=== PATIENT | female | born 1985 | race African-American/Black ===

== ENCOUNTER 2017-01-19 16:21 | Emergency (ER) | payer MEDICAID ==
[2017-01-19 16:44] LABS: BASOPHILS 0.1 % (0-2); EOSINOPHILS 1.5 % (0-7); HEMATOCRIT 39.4 % (36.0-48.0); HEMOGLOBIN 12.8 g/dL (12-16); IMMATURE GRANULOCYTES 0.1 % (0-5); LYMPHOCYTES 32.8 % (15-50); MCH 27.1 pg (26.0-34.0); MCHC 32.5 g/dL (31.0-37.0); MCV 83.5 fL (80.0-100.0); MEAN PLATELET VOLUME 9.4 fL (7.4-10.4); MONOCYTES 6.8 % (2-11); NEUTROPHILS 58.7 % (40-80); PLATELET COUNT 251 10x3/uL (130-400); RBC 4.72 10x6/uL (4.00-5.40); RDW 13.4 % (11.5-14.5); WBC 6.8 10x3/uL (4.8-10.8)
[2017-01-19 17:37] LABS: ALBUMIN 3.3 g/dL (3.4-5.0); ALKALINE PHOSPHATASE 71 U/L (46-116); ALT (SGPT) 25 U/L (10-68); BILIRUBIN - TOTAL 0.12 mg/dL (0.2-1.3); CALCIUM 9.2 mg/dL (8.5-10.1); CARBON DIOXIDE 30.4 mmol/L (21.0-32.0); CHLORIDE - SERUM 101 mmol/L (98-107); CREATININE - SERUM 0.8 mg/dL (0.6-1.3); POTASSIUM - SERUM 4.2 mmol/L (3.5-5.1); PROTEIN - SERUM 6.4 g/dL (6.4-8.2); SODIUM 135 mmol/L (136-145); UREA NITROGEN 10 mg/dL (7-18); eGFR NON AFRICAN AMERICAN 89 mL/min (90-120)
[2017-01-19 17:43] LABS: CALC OSMOLALITY 285 mosm/kg (275-300); TROPONIN-I < 0.017 ng/mL (0.000-0.060)
[2017-01-19 17:44] LABS: GLUCOSE 412 mg/dL (74-106)
== END 2017-01-19 18:40 | disposition home or self-care (01) ==
LOC: D.ER 16:21
PROVIDERS: Emergency Medicine; Nurse Practitioner Family
DX: S29.012A Strain of muscle and tendon of back wall of thorax, initial encounter (principal); V49.9XXA Car occupant (driver) (passenger) injured in unspecified traffic accident, initial encounter; Y93.89 Activity, other specified; Y92.410 Unspecified street and highway as the place of occurrence of the external cause; M62.838 Other muscle spasm; E11.8 Type 2 diabetes mellitus with unspecified complications; I44.0 Atrioventricular block, first degree

== ENCOUNTER 2017-01-22 16:32 | Emergency (ER) | payer MEDICAID ==
[2017-01-22 18:45] LABS: ALBUMIN 3.1 g/dL (3.4-5.0); ALKALINE PHOSPHATASE 65 U/L (46-116); ALT (SGPT) 27 U/L (10-68); BILIRUBIN - TOTAL 0.16 mg/dL (0.2-1.3); CALC OSMOLALITY 288 mosm/kg (275-300); CALCIUM 8.7 mg/dL (8.5-10.1); CHLORIDE - SERUM 104 mmol/L (98-107); CREATININE - SERUM 0.8 mg/dL (0.6-1.3); POTASSIUM - SERUM 3.9 mmol/L (3.5-5.1); PROTEIN - SERUM 6.6 g/dL (6.4-8.2); SODIUM 139 mmol/L (136-145); UREA NITROGEN 12 mg/dL (7-18); eGFR NON AFRICAN AMERICAN 89 mL/min (90-120)
[2017-01-22 18:46] LABS: GLUCOSE 298 mg/dL (74-106)
== END 2017-01-22 19:32 | disposition home or self-care (01) ==
LOC: D.ER 16:32
PROVIDERS: Emergency Medicine
DX: R07.89 Other chest pain (principal); J01.10 Acute frontal sinusitis, unspecified; E11.9 Type 2 diabetes mellitus without complications

== ENCOUNTER 2017-05-04 19:54 | Emergency (ER) | payer MEDICAID | END 2017-05-04 23:00 | disposition home or self-care (01) | LOC: D.ER 19:54 | DX: R51 Headache (principal); E11.65 Type 2 diabetes mellitus with hyperglycemia ==

== ENCOUNTER 2017-06-30 23:10 | Emergency (ER) | payer MEDICAID | END 2017-06-30 23:39 | disposition home or self-care (01) | LOC: D.ER 23:10 | DX: J03.90 Acute tonsillitis, unspecified (principal); E11.9 Type 2 diabetes mellitus without complications ==

== ENCOUNTER 2018-03-04 18:18 | Emergency (ER) | payer MEDICAID ==
[~2018-03-04] VITALS: Ht 165.1 cm; Wt 92.7 kg
[2018-03-04 18:38] VITALS: Ht 165.1 cm; Wt 92.7 kg
[2018-03-04] MEDS ORDERED: VOLTAREN75 MG PO (19:48)
[2018-03-04] MEDS ORDERED: ROBAXIN-750750 MG PO (19:48)
[2018-03-04 20:02] VITALS: BP 15/78
== END 2018-03-04 20:03 | disposition home or self-care (01) ==
LOC: D.ER 18:18
DX: M75.22 Bicipital tendinitis, left shoulder (principal)

== ENCOUNTER 2018-03-09 21:43 | Emergency (ER) | payer MEDICAID ==
[~2018-03-09] VITALS: Ht 165.1 cm; Wt 92.1 kg
[~2018-03-09 21:43] MED LIST: ROBAXIN-750750 MG PO; VOLTAREN75 MG PO
[2018-03-09 22:51] VITALS: Ht 165.1 cm; Wt 92.1 kg
[2018-03-09] MEDS ORDERED: GLUCOPHAGE500 MG PO (22:56)
[2018-03-09 23:40] LABS: BASOPHILS 0.2 % (0-2); EOSINOPHILS 1.5 % (0-7); HEMOGLOBIN 12.9 g/dL (12-16); IMMATURE GRANULOCYTES 0.2 % (0-5); LYMPHOCYTES 45.8 % (15-50); MCH 27.6 pg (26.0-34.0); MCHC 33.9 g/dL (31.0-37.0); MCV 81.2 fL (80.0-100.0); MEAN PLATELET VOLUME 9.6 fL (7.4-10.4); MONOCYTES 5.4 % (2-11); NEUTROPHILS 46.9 % (40-80); PLATELET COUNT 258 10x3/uL (130-400); RBC 4.68 10x6/uL (4.00-5.40); RDW 13.6 % (11.5-14.5); WBC 6.1 10x3/uL (4.8-10.8)
[2018-03-09 23:45] LABS: APTT 22.6 SECONDS (22.8-39.4); INR 0.92 (0.85-1.17)
[2018-03-09 23:47] LABS: D-DIMER-QUANTITATIVE 0.32 ug/mLFEU (0.20-0.54)
[2018-03-10 00:52] LABS: ALKALINE PHOSPHATASE 67 U/L (46-116); ALT (SGPT) 21 U/L (10-68); BILIRUBIN - TOTAL 0.16 mg/dL (0.2-1.3); CALC OSMOLALITY 281 mosm/kg (275-300); CALCIUM 8.5 mg/dL (8.5-10.1); CARBON DIOXIDE 30.2 mmol/L (21.0-32.0); CHLORIDE - SERUM 103 mmol/L (98-107); CREATININE - SERUM 0.6 mg/dL (0.6-1.3); GLUCOSE 285 mg/dL (74-106); POTASSIUM - SERUM 3.8 mmol/L (3.5-5.1); PROTEIN - SERUM 5.9 g/dL (6.4-8.2); SODIUM 137 mmol/L (136-145); UREA NITROGEN 7 mg/dL (7-18); eGFR NON AFRICAN AMERICAN > 90 mL/min (90-120)
[2018-03-10 01:07] LABS: CKMB 0.5 U/L (0.0-3.6); CREATINE KINASE 81 UL (21-215); PRO BNP 14 pg/mL (0-125)
[2018-03-10 01:15] LABS: TROPONIN-I < 0.017 ng/mL (0.000-0.060)
[2018-03-10] MEDS ORDERED: IBUPROFEN800 MG PO (03:20)
[2018-03-10] MEDS ORDERED: CYCLOBENZAPRINE10 MG PO (03:20)
[2018-03-10] MEDS ORDERED: ACETAMINOPHEN500 M1 PO (03:20)
[2018-03-10 03:55] VITALS: BP 116/86
== END 2018-03-10 03:59 | disposition home or self-care (01) ==
LOC: D.ER 21:43
PROVIDERS: Family Medicine
DX: M94.0 Chondrocostal junction syndrome [Tietze] (principal); M79.1 Myalgia

== ENCOUNTER 2018-08-23 19:42 | Emergency (ER) | payer MEDICAID ==
[~2018-08-23] VITALS: Ht 165.1 cm; Wt 93.2 kg
[~2018-08-23 19:42] MED LIST changes: +ACETAMINOPHEN500 M1 PO; +CYCLOBENZAPRINE10 MG PO; +GLUCOPHAGE500 MG PO; +IBUPROFEN800 MG PO
[2018-08-23 19:57] VITALS: Ht 165.1 cm; Wt 93.2 kg
[2018-08-23 20:16] LABS: BASOPHILS 0.5 % (0-2); EOSINOPHILS 1.4 % (0-7); HEMATOCRIT 39.7 % (36.0-48.0); HEMOGLOBIN 13.5 g/dL (12-16); IMMATURE GRANULOCYTES 0.3 % (0-5); LYMPHOCYTES 40.8 % (15-50); MCH 27.8 pg (26.0-34.0); MCV 81.9 fL (80.0-100.0); MEAN PLATELET VOLUME 9.3 fL (7.4-10.4); MONOCYTES 6.9 % (2-11); NEUTROPHILS 50.1 % (40-80); PLATELET COUNT 298 10x3/uL (130-400); RBC 4.85 10x6/uL (4.00-5.40); RDW 13.1 % (11.5-14.5); WBC 6.5 10x3/uL (4.8-10.8)
[2018-08-23 20:28] LABS: APTT 22.7 SECONDS (22.8-39.4); INR 0.93 (0.85-1.17)
[2018-08-23 20:33] LABS: ALBUMIN 3.2 g/dL (3.4-5.0); ALKALINE PHOSPHATASE 69 U/L (46-116); ALT (SGPT) 15 U/L (10-68); BILIRUBIN - TOTAL 0.24 mg/dL (0.2-1.3); CALC OSMOLALITY 279 mosm/kg (275-300); CALCIUM 8.8 mg/dL (8.5-10.1); CARBON DIOXIDE 25.6 mmol/L (21.0-32.0); CHLORIDE - SERUM 103 mmol/L (98-107); CREATININE - SERUM 0.6 mg/dL (0.6-1.3); GLUCOSE 267 mg/dL (74-106); POTASSIUM - SERUM 3.6 mmol/L (3.5-5.1); PROTEIN - SERUM 6.9 g/dL (6.4-8.2); SODIUM 136 mmol/L (136-145); UREA NITROGEN 11 mg/dL (7-18); eGFR NON AFRICAN AMERICAN > 90 mL/min (90-120)
[2018-08-23 20:34] LABS: AMYLASE - SERUM 45 U/L (25-115); LIPASE 175 U/L (73-393)
[2018-08-23 20:44] LABS: CKMB 0.5 U/L (0.0-3.6); CREATINE KINASE 69 UL (21-215); MAGNESIUM - SERUM 1.7 mg/dL (1.8-2.4)
[2018-08-23 20:45] LABS: TROPONIN-I < 0.017 ng/mL (0.000-0.060)
[2018-08-23 20:45] LABS: KETONE - SERUM NEGATIVE (NEGATIVE)
[2018-08-23] MEDS ORDERED: GLUCOPHAGE1000 MG PO (23:47)
[2018-08-23 23:55] VITALS: BP 97/64
== END 2018-08-23 23:56 | disposition home or self-care (01) ==
LOC: D.ER 19:42
PROVIDERS: Family Medicine
DX: R07.89 Other chest pain (principal); E11.65 Type 2 diabetes mellitus with hyperglycemia; Z76.0 Encounter for issue of repeat prescription; Z91.19 Patient's noncompliance with other medical treatment and regimen

== ENCOUNTER 2019-04-19 00:16 | Observation (INO) | payer MEDICAID ==
[2019-04-19] VITALS (7 sets, daily range): BP systolic 94–127; BP diastolic 49–78; Ht 165.1 cm; Wt 91.4 kg
[~2019-04-19] VITALS: Ht 165.1 cm; Wt 91.4 kg
[~2019-04-19 00:16] MED LIST changes: +GLUCOPHAGE1000 MG PO
[2019-04-19 00:54] LABS: ALBUMIN 2.9 g/dL (3.4-5.0); ALKALINE PHOSPHATASE 63 U/L (46-116); ALT (SGPT) 14 U/L (10-68); BILIRUBIN - TOTAL 0.14 mg/dL (0.2-1.3); CALC OSMOLALITY 287 mosm/kg (275-300); CALCIUM 8.1 mg/dL (8.5-10.1); CARBON DIOXIDE 25.2 mmol/L (21.0-32.0); CHLORIDE - SERUM 102 mmol/L (98-107); CREATININE - SERUM 0.8 mg/dL (0.6-1.3); MAGNESIUM - SERUM 1.5 mg/dL (1.8-2.4); POTASSIUM - SERUM 3.3 mmol/L (3.5-5.1); PROTEIN - SERUM 6.4 g/dL (6.4-8.2); SODIUM 138 mmol/L (136-145); UREA NITROGEN 9 mg/dL (7-18); eGFR NON AFRICAN AMERICAN 87 mL/min (90-120)
[2019-04-19 00:58] LABS: HEMATOCRIT 35.3 % (36.0-48.0); LYMPHOCYTES 39.9 % (15-50); MCH 27.8 pg (26.0-34.0); MCV 81.9 fL (80.0-100.0); MEAN PLATELET VOLUME 9.5 fL (7.4-10.4); NEUTROPHILS 52.7 % (40-80); PLATELET COUNT 274 10x3/uL (130-400); RBC 4.31 10x6/uL (4.00-5.40); RDW 13.2 % (11.5-14.5); WBC 5.9 10x3/uL (4.8-10.8)
[2019-04-19 00:59] LABS: KETONE - SERUM NEGATIVE (NEGATIVE)
[2019-04-19 01:01] LABS: GLUCOSE 331 mg/dL (74-106)
--- NOTE | 2019-04-19 01:34 | NUR ---
PT IN ROOM LAUGHING AND JOKING WITH SEVERAL FAMILY MEMBERS. NO DISTRESS NOTED.
[2019-04-19 01:55] LABS: APPEARANCE HAZY (CLEAR); BILIRUBIN NEGATIVE (NEGATIVE); COLOR YELLOW (YELLOW); GLUCOSE 1000 mg/dL (NEGATIVE); KETONE NEGATIVE (NEGATIVE); NITRITE NEGATIVE (NEGATIVE); PROTEIN NEGATIVE (NEGATIVE); SPECIFIC GRAVITY 1.015 (1.005-1.020)
[2019-04-19 01:56] LABS: EPITHELIAL CELLS 0-5 /hpf (0-5); WHITE CELLS - URINE 0-5 /hpf (0-5)
[2019-04-19 01:57] LABS: BACTERIA MANY /hpf (NONE SEEN); MUCUS >1+ /lpf (NONE SEEN); RED CELLS - URINE 0-5 /hpf (0-5); YEAST >1+ WITH HYPHAE /hpf (NONE SEEN)
--- NOTE | 2019-04-19 02:22 | NUR ---
BLOOD SUGAR 351
--- NOTE | 2019-04-19 02:58 | NUR ---
RECEIVED PATIENT VIA WC, WITH ER NURSE AND FAMILY. PATIENT IS A&OX4, 18G IV TO LT AC WITH LR BOLUS HANGING BY GRAVITY. WILL CPOC. NO S/SX OF DISTRESS NOTED, RR EVEN AND UNLABORED. PATIENT STATES LAST BM WAS OVER A WEEK AGO, BOWEL SOUNDS HYPOACTIVE X4. PATIENT IS ON ROOM AIR. MED REC, HISTORY COMPLETE, REQUESTED TELEMETRY FROM RADIATION ENGINEER. PATIENT DENIES NEEDS AT THIS TIME. CL IN REACH, BED LOCKED AND LOWERED. WILL CTM.
[2019-04-19 06:51] LABS: CKMB 0.6 U/L (0.0-3.6); CREATINE KINASE 71 UL (21-215); TROPONIN-I < 0.017 ng/mL (0.000-0.060)
--- NOTE | 2019-04-19 07:05 | NUR ---
REPORT RECEIVED. ALERT ABLE TO VOICE NEEDS STATES SHE HAS CHEST PAIN THAT TINGLES IN RIGHT UPPER CHEST THAT DOES NOT RADIATE AND SHE HAS HAD IT SINCE ADMIT BUT IT HAS NOT CHANGED IN HOW IT FEELS, AND DENIES PRESSURE. RESP EVEN WITHOUT LABOR. LEFT A/C SALINE LOCK IS INTACT. CL IN REACH. FAMILY AT BEDSIDE
--- NOTE | 2019-04-19 07:15 | NUR ---
DR HENDRIX IS HERE AT THIS TIME AND AWARE OF HER CHEST PAIN AND DESCRIPTION OF IT, STATES OK HE WILL SEE HER. NO NEW ORDERS AT THIS TIME.
[2019-04-19 09:34] LABS: CHOL - HDL RATIO 3.6 ratio (2.3-4.1); LDL-HDL RATIO 1.9 ratio (1.5-3.5)
--- NOTE | 2019-04-19 10:15 | NUR ---
SHE HAS MULTIPLE FAMILY IN ROOM AND CHILDREN. NO CHANGE IN STATUS. SHE HAS BEEN ASLEEP ON AND OFF. SALINE LOCK IS CLEAR. BED IN LOW POSITION AND LOCKED. CAREPLAN REVIEW DONE AND SAFETY PRECAUTIONS IN PLACE
[2019-04-19 13:52] LABS: CKMB 0.6 U/L (0.0-3.6); CREATINE KINASE 70 UL (21-215)
[2019-04-19 13:54] LABS: TROPONIN-I < 0.017 ng/mL (0.000-0.060)
--- NOTE | 2019-04-19 17:46 | NUR ---
SHE FORGOT TO CALL WHEN SHE GOT URINE SPECIMEN. SHE WILL CALL NEXT TIME SHE GOES.
[2019-04-19 18:44] LABS: UDS - AMPHET NEGATIVE QUAL (NEGATIVE); UDS - BARB NEGATIVE QUAL (NEGATIVE); UDS - BENZO NEGATIVE QUAL (NEGATIVE); UDS - COCAINE NEGATIVE QUAL (NEGATIVE); UDS - OPIATE NEGATIVE QUAL (NEGATIVE); UDS - PCP NEGATIVE QUAL (NEGATIVE); UDS - THC NEGATIVE QUAL (NEGATIVE)
--- NOTE | 2019-04-19 19:15 | NUR ---
REPORT RECEIVED. ASSUMED CARE OF PATIENT. PT ALERT AND ORIENTED WHEN ENETERING THE ROOM. FAMILY AT BEDSIDE. PT DENIES PAIN AND DISCOMFORT AT THIS TIME. HAS LEFT AC THAT FLUSHES WELL AND IS RETURNED TO SALINE LOCKED. PATIENT ASKS WHAT SNACKS ARE AVAILABLE. PROVIDED WITH HS DIABETIC SNACK. PROVIDED DIABTIC DIET INFORMATION TO PATIENT. PT VERBALIZES UNDERSTANDING. DENIES FURTHER NEEDS. CALL LIGHT IN REACH OF PATIENT. CPOC.
[2019-04-19 20:56] LABS: CKMB 0.7 U/L (0.0-3.6); CREATINE KINASE 72 UL (21-215); TROPONIN-I < 0.017 ng/mL (0.000-0.060)
[2019-04-20] VITALS: BP 109/75
[2019-04-20 03:51] LABS: BASOPHILS 0.2 % (0-2); EOSINOPHILS 1.2 % (0-7); HEMOGLOBIN 11.3 g/dL (12-16); IMMATURE GRANULOCYTES 0.2 % (0-5); LYMPHOCYTES 45.5 % (15-50); MCH 27.6 pg (26.0-34.0); MCHC 34.2 g/dL (31.0-37.0); MCV 80.7 fL (80.0-100.0); MEAN PLATELET VOLUME 9.5 fL (7.4-10.4); MONOCYTES 7.8 % (2-11); NEUTROPHILS 45.1 % (40-80); PLATELET COUNT 264 10x3/uL (130-400); RBC 4.09 10x6/uL (4.00-5.40); RDW 13.1 % (11.5-14.5)
[2019-04-20 04:00] VITALS: BP 113/75
[2019-04-20 04:10] LABS: ALBUMIN 2.5 g/dL (3.4-5.0); ALKALINE PHOSPHATASE 59 U/L (46-116); ALT (SGPT) 14 U/L (10-68); BILIRUBIN - TOTAL 0.12 mg/dL (0.2-1.3); CALC OSMOLALITY 287 mosm/kg (275-300); CALCIUM 7.7 mg/dL (8.5-10.1); CARBON DIOXIDE 24.3 mmol/L (21.0-32.0); CHLORIDE - SERUM 104 mmol/L (98-107); CREATININE - SERUM 0.6 mg/dL (0.6-1.3); GLUCOSE 300 mg/dL (74-106); POTASSIUM - SERUM 3.7 mmol/L (3.5-5.1); PROTEIN - SERUM 5.7 g/dL (6.4-8.2); SODIUM 138 mmol/L (136-145); eGFR NON AFRICAN AMERICAN > 90 mL/min (90-120)
[2019-04-20 04:11] LABS: UREA NITROGEN 16 mg/dL (7-18)
--- NOTE | 2019-04-20 07:05 | NUR ---
REPORT RECEIVED. RESP EVEN WITHOUT LABOR. SHE IS RESTING WITH FAMILY ASLEEP AT BEDSIDE. CL IN REACH. BED IN LOWEST POSITION AND LOCKED. CAREPLAN REVIEWED AND SAFETY PRECAUTIONS IN PLACE
[2019-04-20 08:21] VITALS: BP 99/55
[2019-04-20 12:09] VITALS: BP 105/62
[2019-04-20] MEDS ORDERED: DIFLUCAN100 MG PO (13:02)
[2019-04-20] MEDS ORDERED: FLAGYL500 MG PO (13:02)
[2019-04-20] MEDS ORDERED: OMNICEF300 MG PO (13:04)
--- NOTE | 2019-04-20 16:10 | MORECARE ---
CASE MANAGEMENT DISCHARGE SUMMARY PATIENT: JAKOB WALKER UNIT: [id number] ADM DATE: 04/19/19 AGE: 33 : 85 SEX: F ROOM/BED: D.2110 AUTHOR: CATIA CHIU PHYSICIAN: REFERRING PHYSICIAN: GERALD YAP MD DATE OF SERVICE: 04/20/19 Discharge Plan Patient Name: JAKOB WALKER [facility] : 1985 Planned Disposition: Home Anticipated Discharge Date: 04/20/19 Discharge Date: Expected LOS: 1 Initial Reviewer: [email or web address] Initial Review Date: 04/20/2019 Generated: 04/20/19 5:10 pm DCPIA - Discharge Planning Initial Assessment Updated by [email or web address]: Ulisses Palm on 04/20/19 4:06 pm * Is the patient Alert and Oriented? Yes * How many steps to enter\exit or inside your home? * PCP NONE * Pharmacy [facility] [address] * Preadmission Environment Home with Family * ADLs Independent * Equipment None * Other Equipment NO MEDICAL EQUIPMENT PROVIDER PREFERENCE * List name and contact numbers for known caregivers / representatives who currently or will assist patient after discharge: ALBERTO CORDOVA, SISTER, * Verbal permission to speak to the caregivers and representatives has been obtained from the patient. N/A * Community resources currently utilized None * Please name any agencies selected above. NONE * Additional services required to return to the preadmission environment? No * Can the patient safely return to the preadmission environment? Yes * Has this patient been hospitalized within the prior 30 days at any hospital? No Patient Name: JAKOB WALKER Page 66986 at 1610 All edits/amendments must be made on the electronic document DICTATION DATE: 04/20/19 1610 MIXING AND DISPENSING SUPERVISOR: TOPHER 04/20/19 1610 RPT#: [id number] DC DATE: STATUS: ADM IN [facility] [address] [place] [address] END OF REPORT
--- NOTE | 2019-04-20 16:18 | MORECARE ---
CASE MANAGEMENT DISCHARGE SUMMARY PATIENT: JAKOB WALKER UNIT: [id number] ADM DATE: 04/19/19 AGE: 33 : 85 SEX: F ROOM/BED: D.2870 AUTHOR: APPLE,DOC PHYSICIAN: REFERRING PHYSICIAN: GERALD YAP MD DATE OF SERVICE: 04/20/19 Discharge Plan Patient Name: JAKOB WALKER Facility: [facility]:[place] : 1985 Planned Disposition: Home Anticipated Discharge Date: 04/20/19 Discharge Date: Expected LOS: 1 Initial Reviewer: [email or web address] Initial Review Date: 04/20/2019 Generated: 04/20/19 5:18 pm Comments DCP- Discharge Planning Updated by [email or web address]: Ulisses Palm on 04/20/19 3:[address] Patient Name: JAKOB WALKER Admission Status: ER Accout number: [id number] Admission Date: 04-19-2019 : 1985 Admission Diagnosis: Attending: GERALD YAP Current LOS: 1 Anticipated DC Date: 04-20-2019 Planned Disposition: Home Primary Insurance: MEDICAID [place] Discharge Planning Comments: CM MET WITH PT IN ROOM TO DISCUSS DISCHARGE PLANNING AND NEEDS. PT REPORTS LIVING AT HOME INDEPENDENTLY WITH HER MINOR CHILDREN. PT HAS NO MEDICAL EQUIPMENT AND NO OUTSIDE SERVICES ASSISTING IN THE HOME. CM DISCUSSED AVAILABILITY OF HOME HEALTH, REHAB SERVICES AND MEDICAL EQUIPMENT. PT DENIES DISCHARGE NEEDS, REPORTS HER FRIEND WILL PICK HER AND THE KIDS UP FOR DISCHARGE HOME. PT REPORTS NOT HAVING A PRIMARY CARE DOCTOR. CM PROVIDED COPIES OF PAGES FROM MEDICAID HANDBOOK THAT EXPLAIN HOW TO OBTAIN A PRIMARY DOCTOR. CM HIGHLIGHTED THE [facility] NUMBER TO CALL AND ALSO INSTRUCTED PT ON WHERE THE DEPARTMENT OF HUMAN SERICES OFFICE IS FOR STEEN FOR ASSISTANCE IN GETTING PRIMARY CARE ASSIGNMENT. CM PROVIDED INFORMATION TO [facility] AND TO DR. LOBO POSSIBLE PROVIDERS WITH OPENINGS FOR NEW PATIENTS. PT REPORTED UNDERSTANDING. Ssis Ssrs Developer: Ulisses Palm DCPIA - Discharge Planning Initial Assessment Updated by [email or web address]: Ulisses Palm on 04/20/19 4:06 pm * Is the patient Alert and Oriented? Yes * How many steps to enter\exit or inside your home? * PCP NONE * Pharmacy [facility] [address] * Preadmission Environment Home with Family * ADLs Independent * Equipment None * Other Equipment NO MEDICAL EQUIPMENT PROVIDER PREFERENCE * List name and contact numbers for known caregivers / representatives who currently or will assist patient after discharge: ALBERTO CORDOVA, SISTER, * Verbal permission to speak to the caregivers and representatives has been obtained from the patient. N/A * Community resources currently utilized None * Please name any agencies selected above. NONE * Additional services required to return to the preadmission environment? No * Can the patient safely return to the preadmission environment? Yes * Has this patient been hospitalized within the prior 30 days at any hospital? No Last DP export: 04/20/19 3:10 pm Patient Name: JAKOB WALKER Page 62892 at 1618 All edits/amendments must be made on the electronic document DICTATION DATE: 04/20/191617 SHANK FAKER: TOPHER 04/20/191617 RPT#: [id number] DC DATE: STATUS: ADM IN [facility] [address] [place] [address] END OF REPORT
--- NOTE | 2019-04-20 17:05 | NUR ---
DISCHARGE INSTRUCTIONS EXPLAINED IN DETAIL. SALINE LOCK REMOVED WITH CATH TIP INTACT, NO BLEEDING. ALERT WITH NO CHANGES IN CODITION NOTED. REFUSES W/C TRANSPORT. TELEMETRY RETURNED TO TOY DEPARTMENT MANAGER
[2019-04-21] MEDS ORDERED: GLUCOPHAGE1000 MG PO (03:04)
== END 2019-04-20 17:05 | disposition home or self-care (01) ==
LOC: D.ER 00:16 → D.M2 02:32 → OBSVTIME 02:32 → D.M2 02:32
PROVIDERS: Family Medicine; Internal Medicine Cardiovascular Disease; ADMIT Internal Medicine Nephrology; ATTEND Internal Medicine Nephrology
DX: I20.8 Other forms of angina pectoris (principal); N39.0 Urinary tract infection, site not specified; N76.0 Acute vaginitis; E87.6 Hypokalemia; E83.42 Hypomagnesemia; E11.9 Type 2 diabetes mellitus without complications; Z91.14 Patient's other noncompliance with medication regimen; B37.49 Other urogenital candidiasis

== ENCOUNTER 2019-04-21 01:35 | Emergency (ER) | payer MEDICAID ==
[~2019-04-21] VITALS: Ht 165.1 cm; Wt 88.6 kg
[~2019-04-21 01:35] MED LIST changes: +DIFLUCAN100 MG PO; +FLAGYL500 MG PO; +OMNICEF300 MG PO
[2019-04-21 01:46] VITALS: Ht 165.1 cm; Wt 88.6 kg
[2019-04-21 02:09] LABS: BASOPHILS 0.2 % (0-2); EOSINOPHILS 1.8 % (0-7); HEMATOCRIT 34.3 % (36.0-48.0); HEMOGLOBIN 11.7 g/dL (12-16); IMMATURE GRANULOCYTES 0.4 % (0-5); MCH 27.5 pg (26.0-34.0); MCHC 34.1 g/dL (31.0-37.0); MCV 80.5 fL (80.0-100.0); MEAN PLATELET VOLUME 9.5 fL (7.4-10.4); MONOCYTES 7.4 % (2-11); NEUTROPHILS 47.2 % (40-80); PLATELET COUNT 290 10x3/uL (130-400); RBC 4.26 10x6/uL (4.00-5.40); RDW 13.2 % (11.5-14.5); WBC 5.7 10x3/uL (4.8-10.8)
[2019-04-21 02:25] LABS: APTT 25.7 SECONDS (22.8-39.4); INR 0.99 (0.85-1.17); PROTIME 12.6 SECONDS (11.6-15.0)
[2019-04-21 02:29] LABS: ALKALINE PHOSPHATASE 67 U/L (46-116); ALT (SGPT) 14 U/L (10-68); BILIRUBIN - TOTAL 0.16 mg/dL (0.2-1.3); CALC OSMOLALITY 281 mosm/kg (275-300); CALCIUM 8.7 mg/dL (8.5-10.1); CARBON DIOXIDE 25.2 mmol/L (21.0-32.0); CHLORIDE - SERUM 102 mmol/L (98-107); CREATININE - SERUM 0.7 mg/dL (0.6-1.3); GLUCOSE 269 mg/dL (74-106); POTASSIUM - SERUM 3.8 mmol/L (3.5-5.1); PROTEIN - SERUM 6.7 g/dL (6.4-8.2); SODIUM 136 mmol/L (136-145); UREA NITROGEN 16 mg/dL (7-18); eGFR NON AFRICAN AMERICAN > 90 mL/min (90-120)
[2019-04-21 02:40] LABS: CKMB 0.9 U/L (0.0-3.6); CREATINE KINASE 79 UL (21-215); MAGNESIUM - SERUM 1.8 mg/dL (1.8-2.4); TROPONIN-I < 0.017 ng/mL (0.000-0.060)
[2019-04-21] MEDS ORDERED: GLUCOPHAGE1000 MG PO (03:04)
[2019-04-21 03:32] VITALS: BP 120/78
== END 2019-04-21 03:33 | disposition home or self-care (01) ==
LOC: D.ER 01:35
PROVIDERS: Family Medicine
DX: E11.65 Type 2 diabetes mellitus with hyperglycemia (principal); E07.89 Other specified disorders of thyroid

== ENCOUNTER 2019-06-02 21:59 | Emergency (ER) | payer MEDICAID ==
[~2019-06-02] VITALS: Ht 165.1 cm; Wt 88.0 kg
[2019-06-02 22:02] VITALS: Ht 165.1 cm; Wt 88.0 kg
[2019-06-02 22:19] LABS: HEMATOCRIT 42.1 % (36.0-48.0); HEMOGLOBIN 14.6 g/dL (12-16); MCH 27.7 pg (26.0-34.0); MCHC 34.7 g/dL (31.0-37.0); MCV 79.9 fL (80.0-100.0); MEAN PLATELET VOLUME 9.3 fL (7.4-10.4); PLATELET COUNT 254 10x3/uL (130-400); RBC 5.27 10x6/uL (4.00-5.40); RDW 13.3 % (11.5-14.5); WBC 7.5 10x3/uL (4.8-10.8)
[2019-06-02 22:32] LABS: ALBUMIN 3.2 g/dL (3.4-5.0); ALKALINE PHOSPHATASE 52 U/L (46-116); ALT (SGPT) 19 U/L (10-68); BILIRUBIN - TOTAL 0.26 mg/dL (0.2-1.3); CALC OSMOLALITY 281 mosm/kg (275-300); CALCIUM 8.1 mg/dL (8.5-10.1); CARBON DIOXIDE 26.4 mmol/L (21.0-32.0); CHLORIDE - SERUM 101 mmol/L (98-107); CREATININE - SERUM 0.7 mg/dL (0.6-1.3); GLUCOSE 276 mg/dL (74-106); POTASSIUM - SERUM 4.1 mmol/L (3.5-5.1); PROTEIN - SERUM 6.3 g/dL (6.4-8.2); SODIUM 137 mmol/L (136-145); UREA NITROGEN 8 mg/dL (7-18); eGFR NON AFRICAN AMERICAN > 90 mL/min (90-120)
[2019-06-02 22:39] LABS: EOSINOPHILS 1 % (0-7); LYMPHOCYTES 63 % (15-50); MONOCYTES 6 % (2-11); NEUTROPHILS 28 % (40-80)
[2019-06-02 22:40] LABS: AMYLASE - SERUM 48 U/L (25-115); CKMB 0.9 U/L (0.0-3.6); CREATINE KINASE 81 UL (21-215); LIPASE 175 U/L (73-393); PLATELET ESTIMATE NORMAL
[2019-06-02 22:42] LABS: TROPONIN-I < 0.017 ng/mL (0.000-0.060)
[2019-06-03 00:35] LABS: APPEARANCE HAZY (CLEAR); BACTERIA MANY /hpf (NONE SEEN); BILIRUBIN NEGATIVE (NEGATIVE); COLOR YELLOW (YELLOW); EPITHELIAL CELLS 0-5 /hpf (0-5); GLUCOSE 500 mg/dL (NEGATIVE); KETONE NEGATIVE (NEGATIVE); NITRITE NEGATIVE (NEGATIVE); PROTEIN NEGATIVE (NEGATIVE); RED CELLS - URINE NONE SEEN /hpf (0-5); SPECIFIC GRAVITY 1.025 (1.005-1.020); UROBILINOGEN NORMAL (NORMAL)
[2019-06-03] MEDS ORDERED: TYLENOL W/CODEI1 TAB PO (00:36)
[2019-06-03] MEDS ORDERED: NAPROSYN500 MG PO (00:36)
[2019-06-03 00:41] LABS: UDS - AMPHET NEGATIVE QUAL (NEGATIVE); UDS - BARB NEGATIVE QUAL (NEGATIVE); UDS - BENZO NEGATIVE QUAL (NEGATIVE); UDS - COCAINE NEGATIVE QUAL (NEGATIVE); UDS - OPIATE NEGATIVE QUAL (NEGATIVE); UDS - PCP NEGATIVE QUAL (NEGATIVE); UDS - THC NEGATIVE QUAL (NEGATIVE)
[2019-06-03 00:48] VITALS: BP 105/69
== END 2019-06-03 00:48 | disposition home or self-care (01) ==
LOC: D.ER 21:59
PROVIDERS: Family Medicine
DX: R07.9 Chest pain, unspecified (principal); M94.0 Chondrocostal junction syndrome [Tietze]; E11.9 Type 2 diabetes mellitus without complications

== ENCOUNTER 2019-12-10 00:53 | Emergency (ER) | payer MEDICAID ==
[~2019-12-10] VITALS: Ht 165.1 cm; Wt 87.7 kg
[~2019-12-10 00:53] MED LIST changes: +NAPROSYN500 MG PO; +TYLENOL W/CODEI1 TAB PO
[2019-12-10 00:58] VITALS: Ht 165.1 cm; Wt 87.7 kg
[2019-12-10 01:21] LABS: HCG URINE NEGATIVE (NEGATIVE)
[2019-12-10 01:22] LABS: BASOPHILS 0.2 % (0-2); EOSINOPHILS 1.5 % (0-7); HEMATOCRIT 39.1 % (36.0-48.0); LYMPHOCYTES 45.6 % (15-50); MCH 27.7 pg (26.0-34.0); MCHC 33.2 g/dL (31.0-37.0); MCV 83.4 fL (80.0-100.0); NEUTROPHILS 45.7 % (40-80); PLATELET COUNT 262 10x3/uL (130-400); RBC 4.69 10x6/uL (4.00-5.40); RDW 13.1 % (11.5-14.5); WBC 5.4 10x3/uL (4.8-10.8)
[2019-12-10 01:25] LABS: BACTERIA MANY /hpf (NEGATIVE); BILIRUBIN NEGATIVE (NEGATIVE); EPITHELIAL CELLS 0-5 /hpf (0-5); GLUCOSE 1000 mg/dL (NEGATIVE); KETONE NEGATIVE (NEGATIVE); NITRITE POSITIVE (NEGATIVE); RED CELLS - URINE NONE SEEN /hpf (0-5); SPECIFIC GRAVITY 1.015 (1.005-1.020); UROBILINOGEN NORMAL (NORMAL); WHITE CELLS - URINE 0-5 /hpf (NEGATIVE)
[2019-12-10 01:33] LABS: CALC OSMOLALITY 284 mosm/kg (275-300); CALCIUM 8.7 mg/dL (8.5-10.1); CHLORIDE - SERUM 100 mmol/L (98-107); CREATININE - SERUM 0.7 mg/dL (0.6-1.3); POTASSIUM - SERUM 3.8 mmol/L (3.5-5.1); SODIUM 135 mmol/L (136-145); UREA NITROGEN 11 mg/dL (7-18); eGFR NON AFRICAN AMERICAN > 90 mL/min (90-120)
[2019-12-10 01:38] LABS: GLUCOSE 379 mg/dL (74-106)
[2019-12-10] MEDS ORDERED: GLUCOTROL 5 MG T5 MG PO (01:44)
[2019-12-10] MEDS ORDERED: GLUCOPHAGE1000 MG PO (01:46)
[2019-12-10 01:47] LABS: ALBUMIN 3.2 g/dL (3.4-5.0); ALKALINE PHOSPHATASE 74 U/L (30-120); ALT (SGPT) 22 U/L (10-68); BILIRUBIN - TOTAL 0.16 mg/dL (0.2-1.3); CKMB 1.5 U/L (0.0-3.6); CREATINE KINASE 160 UL (21-215); PROTEIN - SERUM 6.8 g/dL (6.4-8.2)
[2019-12-10 01:48] LABS: TROPONIN-I < 0.017 ng/mL (0.000-0.060)
[2019-12-10 03:16] VITALS: BP 129/70
== END 2019-12-10 03:15 | disposition home or self-care (01) ==
LOC: D.ER 00:53
PROVIDERS: Emergency Medicine
DX: E11.65 Type 2 diabetes mellitus with hyperglycemia (principal); Z79.84 Long term (current) use of oral hypoglycemic drugs; Z91.14 Patient's other noncompliance with medication regimen; T38.3X6A Underdosing of insulin and oral hypoglycemic [antidiabetic] drugs, initial encounter

== ENCOUNTER 2020-06-22 16:35 | Inpatient (IN) | payer MEDICAID ==
[~2020-06-22] VITALS: Ht 165.1 cm; Wt 81.6 kg
--- NOTE | ~2020-06-22 | EC ---
PATIENT:JAKOB WALKER DATE OF SERVICE: 06/23/20 SEX: F MEDICAL RECORD: [id number] DATE OF : [birth year] LOCATION:D.M2 D.211 AGE OF PATIENT: 34 ADMISSION DATE: 06/23/20 REFERRING PHYSICIAN: INTERPRETING PHYSICIAN: DALTON OCASIO MD ECHOCARDIOGRAM REPORT ECHO CHARGES 4 ECHO COMPLETE Date: 06/23/20 CLINICAL DIAGNOSIS: CP ECHOCARDIOGRAPHIC MEASUREMENTS (adult normal given) AC root (d.<3.7cm) 3.1 cm LV Septum d (<1.2 cm> 0.8 cm Valve Excursion 2.1 cm LV Septum (systole) 0.9 cm Left Atria (s.<4.0cm> 2.9 cm LVPW d(<1.2cm) 0.8 cm RV (d.<2.3cm) 2.2 cm LVPW (sytole) 1.1 cm LV diastole(<5.6CM) 5.3 cm MV E-F(>70mm/sec) cm LV systole 4.0 cm LVOT Diameter 1.8 cm MV exc.(>10mm) 1.8 cm Est.ejection fraction (50-75%) % DOPPLER: LVIT cm/sec A 45 cm/sec E 56 cm/sec LA cm/sec RVSP 20 mmHg LVOT 84 cm/sec AOP1/2T m/s Asc. Ao 90 cm/sec RVOT 55 cm/sec RA cm/sec PA 77 cm/sec AV Gradient Peak 3.3 mmHg AV Mean 1.9 mmHg AV Area 2.5 cm MV Gradient Peak 1.4 mmHg MV Mean 0.9 mmHg MV Area cm COMMENTS: Claims Coordinator: Lukas ROSS Eyewear Consultant: 3 Dr. Bearden TAPE# PACS Pericardial Effusion N DATE OF SERVICE: Adequate 2D, color flow imaging, spectral Doppler, and M-Mode No LVH. LV internal dimension is normal. Wall motion is normal. EF is greater than or equal to 55%. Aortic valve is tricuspid. No evidence of stenosis by Doppler interrogation. Left atrium is normal. Mitral valve shows no prolapse. Physiologic MR. Right-sided chambers are grossly normal. Physiologic TR. TRANSINT:[id number] Voice Confirmation ID: [id number] DOCUMENT ID: [id number] ECHOCARDIOGRAM REPORT [id number] JAKOB WALKER DALTON OCASIO MD CC: [id number] DICTATION DATE: 06/24/20 1326 LETTERPRESS SETTER: 06/24/20 1346 DIS IN 06/24/20 [place] [id number] [place] [id number]
[~2020-06-22 16:35] MED LIST changes: +GLUCOTROL 5 MG T5 MG PO
[2020-06-22 17:33] LABS: BASOPHILS 0.3 % (0-2); EOSINOPHILS 1.6 % (0-7); HEMOGLOBIN 13.3 g/dL (12-16); MCH 27.5 pg (26.0-34.0); MCHC 33.3 g/dL (31.0-37.0); MCV 82.8 fL (80.0-100.0); MEAN PLATELET VOLUME 9.3 fL (7.4-10.4); MONOCYTES 6.2 % (2-11); NEUTROPHILS 51.9 % (40-80); PLATELET COUNT 249 10x3/uL (130-400); RBC 4.83 10x6/uL (4.00-5.40); RDW 13.2 % (11.5-14.5); WBC 6.2 10x3/uL (4.8-10.8)
[2020-06-22 17:41] LABS: APTT 25.2 SECONDS (22.8-39.4); INR 0.96 (0.85-1.17); PROTIME 12.7 SECONDS (11.6-15.0)
[2020-06-22 18:15] VITALS: BP 119/74
[2020-06-22 18:16] LABS: CALC OSMOLALITY 276 mosm/kg (275-300); CALCIUM 9.1 mg/dL (8.5-10.1); CARBON DIOXIDE 27.9 mmol/L (21.0-32.0); CHLORIDE - SERUM 100 mmol/L (98-107); CREATININE - SERUM 0.6 mg/dL (0.6-1.3); POTASSIUM - SERUM 3.5 mmol/L (3.5-5.1); SODIUM 134 mmol/L (136-145); UREA NITROGEN 14 mg/dL (7-18); eGFR NON AFRICAN AMERICAN > 90 mL/min (90-120)
[2020-06-22 18:18] LABS: GLUCOSE 240 mg/dL (74-106)
[2020-06-22 18:32] LABS: ALBUMIN 3.7 g/dL (3.4-5.0); ALKALINE PHOSPHATASE 74 U/L (30-120); ALT (SGPT) 20 U/L (10-68); BILIRUBIN - TOTAL 0.21 mg/dL (0.2-1.3); CREATINE KINASE 129 UL (21-215); PROTEIN - SERUM 7.9 g/dL (6.4-8.2); TROPONIN-I < 0.017 ng/mL (0.000-0.060)
[2020-06-22 20:00] VITALS: BP 103/65
[2020-06-22 21:26] LABS: CKMB 1.5 U/L (0.0-3.6); CREATINE KINASE 152 UL (21-215); TROPONIN-I < 0.017 ng/mL (0.000-0.060)
[2020-06-22 21:30] VITALS: BP 125/85
[2020-06-22 22:00] VITALS: BP 103/67
[2020-06-23] VITALS: BP 101/71
[2020-06-23 02:00] VITALS: BP 113/72
[2020-06-23 03:38] LABS: BASOPHILS 0.2 % (0-2); EOSINOPHILS 1.9 % (0-7); HEMATOCRIT 38.5 % (36.0-48.0); HEMOGLOBIN 12.8 g/dL (12-16); IMMATURE GRANULOCYTES 0.2 % (0-5); LYMPHOCYTES 43.9 % (15-50); MCH 27.5 pg (26.0-34.0); MCHC 33.2 g/dL (31.0-37.0); MCV 82.8 fL (80.0-100.0); MONOCYTES 5.9 % (2-11); NEUTROPHILS 47.9 % (40-80); PLATELET COUNT 223 10x3/uL (130-400); RBC 4.65 10x6/uL (4.00-5.40); RDW 13.2 % (11.5-14.5); WBC 5.9 10x3/uL (4.8-10.8)
[2020-06-23 04:02] LABS: ALBUMIN 3.2 g/dL (3.4-5.0); ALKALINE PHOSPHATASE 67 U/L (30-120); ALT (SGPT) 21 U/L (10-68); BILIRUBIN - TOTAL 0.34 mg/dL (0.2-1.3); CALC OSMOLALITY 275 mosm/kg (275-300); CALCIUM 8.7 mg/dL (8.5-10.1); CARBON DIOXIDE 28.2 mmol/L (21.0-32.0); CHLORIDE - SERUM 102 mmol/L (98-107); CKMB 1.4 U/L (0.0-3.6); CREATINE KINASE 98 UL (21-215); CREATININE - SERUM 0.7 mg/dL (0.6-1.3); GLUCOSE 229 mg/dL (74-106); POTASSIUM - SERUM 3.5 mmol/L (3.5-5.1); PROTEIN - SERUM 7.1 g/dL (6.4-8.2); SODIUM 135 mmol/L (136-145); TROPONIN-I < 0.017 ng/mL (0.000-0.060); UREA NITROGEN 11 mg/dL (7-18); eGFR NON AFRICAN AMERICAN > 90 mL/min (90-120)
[2020-06-23 07:56] VITALS: BP 93/64
--- NOTE | 2020-06-23 07:58 | NUR ---
REPORT RECEIVED. PATIENT RESTING QUIETLY WITHOUT ANY C/O. SALINE LOCK IN LEFT AC. REQUESTING FOOD, WILL WAIT TO SEE DR OCASIO
[2020-06-23 09:16] LABS: CKMB 1.1 U/L (0.0-3.6); CREATINE KINASE 92 UL (21-215); TROPONIN-I < 0.017 ng/mL (0.000-0.060)
[2020-06-23 16:30] VITALS: BP 112/69
[2020-06-23 17:21] VITALS: BP 130/64
--- NOTE | 2020-06-23 19:12 | NUR ---
RECEIVED BEDSIDE REPORT. ROUNDING COMPLETE. PATIENT IS ALERT AND ORIENTED, RESTINF COMFORTABLY IN BED. RESPIRATIONS ARE EVEN AND UNLABORED. NO S/S OF DISTRESS. NO C/O PAIN. CALL LIGHT WITHIN REACH.
[2020-06-23 22:24] VITALS: BP 109/68
[2020-06-24 03:19] VITALS: BP 112/67
[2020-06-24 06:59] VITALS: BP 107/73
[2020-06-24 07:00] VITALS: BP 113/68
--- NOTE | 2020-06-24 08:59 | CN ---
PATIENT NAME:JAKOB WALKER MEDICAL RECORD: [id number] : [birth year] LOCATION:DAnna Marie D.2119 ADMIT DATE: 06/23/20 ACCOUNT: [id number] CONSULTING PHYSICIAN: DALTON OCASIO MD REFERRING PHYSICIAN: HEATH CUEVAS MD DATE OF CONSULTATION: 06/23/2020 HISTORY OF PRESENT ILLNESS: A 34-year-old female with no known history of coronary artery disease, has history of diabetes mellitus, recently ran out of her metformin, began having chest pain a day prior to admission, definite pleuritic component, worse with inspiration, worse with lying down, some subjective fever and chills. We are asked to see her concerning her cardiovascular status. PAST MEDICAL HISTORY: Includes a history of diabetes mellitus. CHRONIC MEDICATIONS: Metformin 1 g b.i.d. ALLERGIES: FISH PRODUCTS. SOCIAL HISTORY: Nonsmoker, nondrinker. Works full-time. No set exercise program. Takes care of all her ADLs. REVIEW OF SYSTEMS: The patient reports easy bruising but reports no swollen glands. The patient reports no fever, no night sweats, no significant weight gain, no significant weight loss. No significant exercise tolerance. The patient reports no dry eyes, no irritation, no vision change. Patient reports no difficulty hearing and no ear pain. Patient reports no frequent nose bleeds or nose and sinus problems. Patient reports no arm pain on exertion. No shortness of breath while lying down. No history of heart murmur. Patient reports no cough, no wheezing or coughing up blood. Patient reports no abdominal pain, no vomiting. Normal appetite. No diarrhea and not vomiting blood. No nausea and no constipation. Patient reports no incontinence. No difficulty urinating. No hematuria. No increased frequency. Patient reports no muscle aches. No weakness, no arthralgias, no back pain. No swelling of the extremities. Patient reports no abnormal mole, no jaundice, no rashes. Reports no loss of consciousness. No weakness and no numbness. No seizures, dizziness, or headaches. The patient reports no depression, no sleep disturbance, feeling safe in a relationship and no alcohol abuse. Patient reports no fatigue. Reports no runny nose or sinus pressure. No itching, no hives, and no frequent sneezing. PHYSICAL EXAMINATION: GENERAL: Pleasant, in no acute distress, appears stated age. VITAL SIGNS: 93/64, pulse 88 and regular. HEENT: Normocephalic, atraumatic. NECK: No JVD or bruit. HEART: Regular. I to II/ systolic ejection murmur. LUNGS: Good air excursion. ABDOMEN: Soft, nontender. EXTREMITIES: Pulses 2+. There is no edema. IMPRESSION: Chest pain, definite pleuritic component. Enzymes negative at this point. EKG is normal. Check echocardiograph study to assure no pericardial/pleural effusion. Give 1 dose of Toradol for anti-inflammatory CONSULT REPORT [id number] JAKOB WALKER NTS:[id number] Voice Confirmation ID: [id number] DOCUMENT ID: [id number] DALTON OCASIO MD at 0859 CC: [id number] DICTATION DATE: 06/23/20903 SPORTS RECRUITER: 06/23/201919 ADM IN [facility] [address] [place] [address]
[2020-06-24 10:30] VITALS: BP 117/84
[2020-06-24 11:06] LABS: BASOPHILS 0.2 % (0-2); EOSINOPHILS 1.5 % (0-7); HEMATOCRIT 40.6 % (36.0-48.0); HEMOGLOBIN 13.2 g/dL (12-16); MCH 27.2 pg (26.0-34.0); MCHC 32.5 g/dL (31.0-37.0); MCV 83.5 fL (80.0-100.0); MEAN PLATELET VOLUME 9.4 fL (7.4-10.4); MONOCYTES 5.3 % (2-11); PLATELET COUNT 244 10x3/uL (130-400); RBC 4.86 10x6/uL (4.00-5.40); RDW 13.2 % (11.5-14.5); WBC 4.5 10x3/uL (4.8-10.8)
[2020-06-24 11:12] LABS: CALCIUM 8.8 mg/dL (8.5-10.1); CARBON DIOXIDE 27.7 mmol/L (21.0-32.0); CHLORIDE - SERUM 103 mmol/L (98-107); CREATININE - SERUM 0.7 mg/dL (0.6-1.3); SODIUM 135 mmol/L (136-145); eGFR NON AFRICAN AMERICAN > 90 mL/min (90-120)
[2020-06-24 11:25] LABS: CALC OSMOLALITY 282 mosm/kg (275-300); GLUCOSE 298 mg/dL (74-106); POTASSIUM - SERUM 4.2 mmol/L (3.5-5.1); UREA NITROGEN 18 mg/dL (7-18)
--- NOTE | 2020-06-24 12:45 | NUR ---
PATIENT HAS NOT HAD A FLU SHOT. WHEN ASKED IF SHE WANTED ONE FOR DISCHARGE, SHE REFUSED.
[2020-06-24 13:30] VITALS: Ht 165.1 cm; Wt 81.6 kg
--- NOTE | 2020-06-24 13:40 | NUR ---
IV AND TELEMETRY DCD. DC PLANS GIVEN. UNDERSTANDING VOICED.
--- NOTE | 2020-06-24 14:05 | MORECARE ---
CASE MANAGEMENT DISCHARGE SUMMARY PATIENT: JAKOB WALKER UNIT: [id number] ADM DATE: 06/23/20 AGE: 34 : [birth year] SEX: F ROOM/BED: D.7779 AUTHOR: CATIA CHIU PHYSICIAN: REFERRING PHYSICIAN: HEATH CUEVAS MD DATE OF SERVICE: 06/24/20 Discharge Plan Patient Name: JAKOB WALKER [facility] [facility] 1985 Planned Disposition: Home Anticipated Discharge Date: 06/24/20 Discharge Date: 06/24/2020 Expected LOS: 1 Initial Reviewer: [email or web address] Initial Review Date: 06/24/2020 Generated: 06/24/20 3:05 pm DCPIA - Discharge Planning Initial Assessment Updated by [email or web address]: Imani Westbrook on 06/24/20 2:05 pm * Is the patient Alert and Oriented? Yes * How many steps to enter\exit or inside your home? 0/0 * PCP None * Pharmacy [facility] [address] * Preadmission Environment Home Alone * ADLs Independent * Equipment None * List name and contact numbers for known caregivers / representatives who currently or will assist patient after discharge: Katlny Adams - [place] - [phone] * Verbal permission to speak to the caregivers and representatives has been obtained from the patient. Yes * Community resources currently utilized None * Additional services required to return to the preadmission environment? No * Can the patient safely return to the preadmission environment? Yes * Has this patient been hospitalized within the prior 30 days at any hospital? No Patient Name: JAKOB WALKER Page 49149 at 1405 All edits/amendments must be made on the electronic document DICTATION DATE: 06/24/20 140 ONCOLOGY COORDINATOR: TOPHER 06/24/20 140 RPT#: [id number] DC DATE:06/24/20 STATUS: DIS IN [facility] [address] [place] [address] END OF REPORT
--- NOTE | 2020-06-24 14:16 | MORECARE ---
CASE MANAGEMENT DISCHARGE SUMMARY PATIENT: JAKOB WALKER UNIT: [id number] ADM DATE: 06/23/20 AGE: 34 : 85 SEX: F ROOM/BED: D.6779 AUTHOR: CATIA CHIU PHYSICIAN: REFERRING PHYSICIAN: HEATH CUEVAS MD DATE OF SERVICE: 06/24/20 Discharge Plan Patient Name: JAKOB WALKER Facility: [facility]:[place] : 1985 Planned Disposition: Home Anticipated Discharge Date: 06/24/20 Discharge Date: 06/24/2020 Expected LOS: 1 Initial Reviewer: [email or web address] Initial Review Date: 06/24/2020 Generated: 06/24/20 3:15 pm Comments DCP- Discharge Planning Updated by [email or web address]: Imani Westbrook on 06/24/20 1:[address] Patient Name: JAKOB WALKER Admission Status: ER Accout number: [id number] Admission Date: 06-23-2020 : 1985 Admission Diagnosis:CHEST PAIN, UNSPECIFIED Attending: HEATH BELTRAN Current LOS: 1 Anticipated DC Date: 06-24-2020 Planned Disposition: Home Primary Insurance: MEDICAID [place] Discharge Planning Comments: CM met with patient to complete initial dc planning assessment. CM educated patient on the CM role and verbal consent given by patient to complete assessment. CM verified patient's address, phone number, and emergency contact phone numbers. Patient lives at home alone. At discharge patient plans to return and feels this is a safe discharge. CM discussed availability of home health, rehab services, and medical equipment. Patient denied known discharge needs at this time. Transportation provider at discharge will be a friend. I have asked David to write a RX for glucometer for patient and also informed she can purchase one at [employer] for 10 dollars. I provided her with the [facility] number for a PCP . CM will continue to follow and will assist as needed with dc plans/needs. Train Dispatcher: Imani Westbrook DCPIA - Discharge Planning Initial Assessment Updated by [email or web address]: Imani Westbrook on 06/24/20 2:05 pm * Is the patient Alert and Oriented? Yes * How many steps to enter\exit or inside your home? 0/0 * PCP None * Pharmacy [facility] [address] * Preadmission Environment Home Alone * ADLs Independent * Equipment None * List name and contact numbers for known caregivers / representatives who currently or will assist patient after discharge: Katlyn Adams - friend - [phone] * Verbal permission to speak to the caregivers and representatives has been obtained from the patient. Yes * Community resources currently utilized None * Additional services required to return to the preadmission environment? No * Can the patient safely return to the preadmission environment? Yes * Has this patient been hospitalized within the prior 30 days at any hospital? No Last DP export: 06/24/20 1:06 p Patient Name: JAKOB WALKER Page 26027 at 1416 All edits/amendments must be made on the electronic document DICTATION DATE: 06/24/205 SAP BW ARCHITECT: TOPHER 06/24/20 1415 RPT#: [id number] DC DATE:06/24/20 STATUS: DIS IN [facility] [address] [place] [address] END OF REPORT
--- NOTE | 2020-06-24 16:55 | NUR ---
METFORMIN 1000 MG #60 CALLED TO [facility] [phone] WITH ONE RE[employer]. TO TAKE BID, TALKED TO LANNY - PHARMACIST.
--- NOTE | 2020-06-25 09:18 | MORECARE ---
CASE MANAGEMENT DISCHARGE SUMMARY PATIENT: JAKOB WALKER UNIT: [id number] ADM DATE: 06/23/20 AGE: 34 : 85 SEX: F ROOM/BED: D.7003 AUTHOR: CATIA CHIU PHYSICIAN: REFERRING PHYSICIAN: HEATH CUEVAS MD DATE OF SERVICE: 06/25/20 Discharge Plan Patient Name: JAKOB WALKER Facility: [facility]:[place] : 1985 Planned Disposition: Home Anticipated Discharge Date: 06/24/20 Discharge Date: 06/24/2020 Expected LOS: 1 Initial Reviewer: [email or web address] Initial Review Date: 06/24/2020 Generated: 06/25/20 10:18 am Comments DCP- Discharge Planning Updated by [email or web address]: Imani Westbrook on 06/24/20 1:[address] Patient Name: JAKOB WALKER Admission Status: ER Accout number: [id number] Admission Date: 06-23-2020 : 1985 Admission Diagnosis:CHEST PAIN, UNSPECIFIED Attending: HEATH BELTRAN Current LOS: 1 Anticipated DC Date: 06-24-2020 Planned Disposition: Home Primary Insurance: MEDICAID [place] Discharge Planning Comments: CM met with patient to complete initial dc planning assessment. CM educated patient on the CM role and verbal consent given by patient to complete assessment. CM verified patient's address, phone number, and emergency contact phone numbers. Patient lives at home alone. At discharge patient plans to return and feels this is a safe discharge. CM discussed availability of home health, rehab services, and medical equipment. Patient denied known discharge needs at this time. Transportation provider at discharge will be a friend. I have asked David to write a RX for glucometer for patient and also informed she can purchase one at [employer] for 10 dollars. I provided her with the [facility] number for a PCP . CM will continue to follow and will assist as needed with dc plans/needs. Small Package And Bundle Sorter Clerk: Imani Westbrook DCPIA - Discharge Planning Initial Assessment Updated by [email or web address]: Imani Westbrook on 06/24/20 2:05 pm * Is the patient Alert and Oriented? Yes * How many steps to enter\exit or inside your home? 0/0 * PCP None * Pharmacy [facility] [address] * Preadmission Environment Home Alone * ADLs Independent * Equipment None * List name and contact numbers for known caregivers / representatives who currently or will assist patient after discharge: Katlyn Adams - friend - [phone] * Verbal permission to speak to the caregivers and representatives has been obtained from the patient. Yes * Community resources currently utilized None * Additional services required to return to the preadmission environment? No * Can the patient safely return to the preadmission environment? Yes * Has this patient been hospitalized within the prior 30 days at any hospital? No Last DP export: 06/24/20 1:16 p Patient Name: JAKOB WALKER Page 18855 at 0918 All edits/amendments must be made on the electronic document DICTATION DATE: 06/25/20917 WARDSPERSON: TOPHER 06/25/20917 RPT#: [id number] DC DATE:06/24/20 STATUS: DIS IN [facility] [address] [place] [address] END OF REPORT
== END 2020-06-24 13:40 | disposition home or self-care (01) | DRG 313 ==
LOC: D.ER 16:35 → D.EDHOLD 20:36 → D.M2 20:36 → OBSVTIME 06-23 16:40 → D.M2 06-23 16:53
PROVIDERS: Family Medicine; ADMIT Family Medicine Adult Medicine; ATTEND Family Medicine Adult Medicine
DX: R07.9 Chest pain, unspecified (principal); E11.65 Type 2 diabetes mellitus with hyperglycemia; R09.1 Pleurisy; I25.10 Atherosclerotic heart disease of native coronary artery without angina pectoris; I10 Essential (primary) hypertension; K21.9 Gastro-esophageal reflux disease without esophagitis; Z91.14 Patient's other noncompliance with medication regimen

== ENCOUNTER 2021-01-04 12:38 | Emergency (ER) | payer MEDICAID ==
[2020-09-14 15:34] VITALS: Ht 165.1 cm; Wt 81.8 kg
[~2021-01-04] VITALS: Ht 165.1 cm; Wt 81.8 kg
[~2021-01-04 12:38] MED LIST changes: +MACROBID100 MG PO
[2021-01-04 12:46] VITALS: BP 118/64
[2021-01-04 13:14] LABS: BASOPHILS 0.2 % (0-2); EOSINOPHILS 0.8 % (0-7); HEMATOCRIT 37.6 % (36.0-48.0); HEMOGLOBIN 12.4 g/dL (12-16); IMMATURE GRANULOCYTES 0.2 % (0-5); LYMPHOCYTES 29.2 % (15-50); MCH 27.6 pg (26.0-34.0); MCV 83.7 fL (80.0-100.0); MEAN PLATELET VOLUME 9.9 fL (7.4-10.4); NEUTROPHIL ABS# 4.14 10x3/uL (1.56-6.13); NEUTROPHILS 63.6 % (40-80); PLATELET COUNT 231 10x3/uL (130-400); RBC 4.49 10x6/uL (4.00-5.40); RDW 13.2 % (11.5-14.5); WBC 6.5 10x3/uL (4.8-10.8)
[2021-01-04 13:23] LABS: BILIRUBIN NEGATIVE (NEGATIVE); KETONE NEGATIVE (NEGATIVE); NITRITE NEGATIVE (NEGATIVE); UROBILINOGEN NORMAL mg/dL (< 2)
[2021-01-04 13:24] LABS: BACTERIA FEW HPF (NONE SEEN); SQUAMOUS EPITHELIAL 0-5 HPF (0-4)
[2021-01-04 13:27] LABS: ALBUMIN 3.2 g/dL (3.4-5.0); ALKALINE PHOSPHATASE 75 U/L (30-120); ALT (SGPT) 25 U/L (10-68); BILIRUBIN - TOTAL 0.23 mg/dL (0.2-1.3); CALC OSMOLALITY 284 mosm/kg (275-300); CALCIUM 8.2 mg/dL (8.5-10.1); CARBON DIOXIDE 28.3 mmol/L (21.0-32.0); CHLORIDE - SERUM 98 mmol/L (98-107); CREATININE - SERUM 0.8 mg/dL (0.6-1.3); MAGNESIUM - SERUM 1.5 mg/dL (1.8-2.4); POTASSIUM - SERUM 3.7 mmol/L (3.5-5.1); PROTEIN - SERUM 6.7 g/dL (6.4-8.2); SODIUM 133 mmol/L (136-145); UREA NITROGEN 12 mg/dL (7-18); eGFR NON AFRICAN AMERICAN 86 mL/min (90-120)
[2021-01-04 13:28] LABS: GLUCOSE 444 mg/dL (74-106)
[2021-01-04] MEDS ORDERED: GLUCOPHAGE1000 MG PO (14:08)
== END 2021-01-04 15:01 | disposition home or self-care (01) ==
LOC: D.ER 12:38
PROVIDERS: Family Medicine
DX: E11.65 Type 2 diabetes mellitus with hyperglycemia (principal); Z91.19 Patient's noncompliance with other medical treatment and regimen; Z79.84 Long term (current) use of oral hypoglycemic drugs

== ENCOUNTER 2021-03-13 15:55 | Emergency (ER) | payer MEDICAID ==
[~2021-03-13] VITALS: Ht 165.1 cm; Wt 81.8 kg
[2021-03-13 16:20] VITALS: Ht 165.1 cm; Wt 81.8 kg
[2021-03-13] MEDS ORDERED: METHOCARBAMOL500 MG PO (20:17)
[2021-03-13] MEDS ORDERED: TORADOL10 MG PO (20:17)
[2021-03-13 20:24] VITALS: BP 126/82
== END 2021-03-13 20:24 | disposition home or self-care (01) ==
LOC: D.ER 15:55
DX: S29.012A Strain of muscle and tendon of back wall of thorax, initial encounter (principal); X50.9XXA Other and unspecified overexertion or strenuous movements or postures, initial encounter; Y93.9 Activity, unspecified; Y92.9 Unspecified place or not applicable